=== PATIENT | male | born 1990 | race African-American/Black ===

== ENCOUNTER 2016-05-09 16:45 | Emergency (ER) | payer OTHER ==
[~2016-05-09] VITALS: Ht 175.3 cm; Wt 127.0 kg
[2016-05-09] MEDS ORDERED: METHOCARBAMOL500 M1 PO (19:36)
--- NOTE | 2016-05-09 20:03 | ED SKIN/ALLERGY COMPLAINT ---
History of Present Illness General Chief Complaint: General Adult Stated Complaint: ?ABCESS TO LT SIDE,?FROM SYNTHETIC WEED Source: patient, old records Exam Limitations: no limitations Vital Signs & Intake/Output Vital Signs & Intake/Output Vital Signs Date Time Temp Pulse Resp B/P Pulse O2 O2 Flow FiO2 Ox Delivery Rate 05/09 2023 98.5 87 18 124/65 98 05/09 1734 98.1 96 16 125/82 99 Room Air Allergies Coded Allergies: No Known Allergies (05/09/16) Reconcile Medications Amoxicillin/Potassium Clav (Augmentin 875-125 Tablet) 875 MG-125 MG TABLET 1 TAB PO BID infection Methocarbamol 500 MG TABLET 1 TAB PO Q8H MUSCLE SPASMS (Reported) Prednisone 10 MG TABLET 0 PO ONCE - 6 tabs po day 1 5 tabs po day 2 4 tabs day 3 3 tabs day 4 2 tabs po day 5 1 tab po day 6 and 7 Triage Note: PT HAS BUMP IN LEFT AXILLARY AREA. AREA HAS NO REDNESS OR TENDERNESS STATES HE HAS BEEN ON PREDNISONE FOR 4 DAYS AND IT SEEMED TO GO AWAY BUT HE WAS ONLY PUT ON THE PREDNISONE FOR 4 DAYS NOT TAPER. Triage Nurses Notes Reviewed? yes Onset: Abrupt Duration: constant, waxing and waning, x 2.5 years Timing: recent history Severity: mild, moderate Severity Numbers: 5 Possible Factors: no cause identified No Modifying Factors: none Associated Symptoms: denies HPI: 25-year-old male with no medical history presents emergency room complaining of a small bump noted to his left axilla since December 2014 after he smoked synthetic marijuana. The patient states she's been seen numerous times in emergency rooms around [place] with no known cause identified. He states he was started on prednisone for 4 days and states that was improving bump however ran out and is requesting a refill. He denies any rashes to his skin no discharge. He states that it has not been enlarging and that it stays the same size however comes and goes intermittently. Patient is also complaining of sore throat for the past 1 week he denies fever chills congestion earache. No chest pain or shortness of breath no weight loss nausea vomiting or diarrhea (JELLY WALKER,MISAEL) Past History Travel History Traveled to [place] past 21 day No Medical History Any Pertinent Medical History? none Surgical History Surgical History: none Psychosocial History What is your primary language Romanian Tobacco Use: Never used ETOH Use: occasional use Illicit Drug Use: marijuana Family History Hx Contributory? No (MISAEL ACEVEDO) Review of Systems Review of Systems Constitutional: Reports: see HPI. All Other Systems: Reviewed and Negative Comments Review of systems: See HPI, All other systems negative. Constitutional, no chills no fever, no malaise HEENT: No visual changes no sore throat no congestion, Cardiovascular: No chest pain , no palpitation Skin, see hpi Respiratory: No dyspnea no cough no sputum GI: No nausea no vomiting, no diarrhea, : No dysuria Muscle skeletal: No joint pain, no joint swelling, no back pain, no neck pain, Neurologic: Nno headache Psych: No stress Heme/endocrine: No bruising no bleeding Immunology: No lymphadenopathy, (MISAEL ACEVEDO) Physical Exam Physical Exam General Appearance: well developed/nourished, no apparent distress, alert, awake , comfortable Comments: Well-developed well-nourished patient in no apparent distress. HEENT: Atraumatic, extraocular motion intact Neck: Supple, FROM Back: FROM Cardiovascular: Regular rate and rhythms no murmurs rubs or gallops, Respiratory: No respiratory distress. Patient speaking in full complete sentences. Breath sounds clear to auscultation bilaterally: NO W/R/R Extremities: full range of motion Neuro: Alert and oriented x3 Skin: Warm & dry; there is a small reactive lymph node nontender, noted to the left axilla, there is no abscess there is no overlying erythema or induration or fluctuance No appreciable rash on exposed skin Psych: Mood affect normal, normal memory normal judgment. (MISAEL ACEVEOD) Progress Differential Diagnosis: abscess/cellulitis, allergic reaction, contact dermatitis, lymphadenoatphy,. malignancy, pharyngitis, viral syndrome Plan of Care: Current Medications Sig/Gene Start time Last Medication Dose Stop Time Status Admin Dexamethasone 4 MG ONCE ONE 05/09 2029 CAN (Decadron Inj) 05/09 2030 Dexamethasone 4 MG ONCE ONE 05/09 2014 CAN (Decadron Inj) 05/09 2015 Departure Departure Time of Disposition: 2011 Disposition: HOME OR SELF CARE Condition: Stable Clinical Impression Primary Impression: Lymphadenopathy Referrals: PATIENT HAS NO PRIMARY CARE DR (PCP/Family) Additional Instructions: Follow-up with your primary care physician on Friday. Prednisone and Augmentin as directed these prescriptions were sent to your pharmacy Departure Forms: Customer Survey General Discharge Information Prescriptions: Current Visit Scripts Prednisone 0 PO ONCE #22 TAB 6 tabs po day 1 5 tabs po day 2 4 tabs day 3 3 tabs day 4 2 tabs po day 5 1 tab po day 6 and 7 Amoxicillin/Potassium Clav (Augmentin 875-125 Tablet) 1 TAB PO BID #14 TAB (MISAEL ACEVEDO) PA/HALF SECTION IRONER Co-Sign Statement Statement: ED Attending supervision documentation- [] I saw and evaluated the patient. I have also reviewed all the pertinent lab results and diagnostic results. I agree with the findings and the plan of care as documented in the PA's/HALF SECTION IRONER's documentation. x I have reviewed the ED Record and agree with the PA's/HALF SECTION IRONER's documentation. [] Additions or exceptions (if any) to the PAs/HALF SECTION IRONER's note and plan are summarized below: [] (GABBY CROCKETT,ALDO)
[2016-05-09] MEDS ORDERED: PREDNISONE10 M2 PO (20:14)
[2016-05-09] MEDS ORDERED: AUGMENTIN 875-1 EACH PO (20:14)
[2016-05-09 20:24] VITALS: BP 124/65
== END 2016-05-09 20:45 ==
LOC: ERH 16:45
DX: R59.1 Generalized enlarged lymph nodes (principal)
CPT/HCPCS: 96372; J3490

== ENCOUNTER 2016-06-01 12:19 | Emergency (ER) | payer OTHER ==
[~2016-06-01] VITALS: Ht 175.3 cm; Wt 131.5 kg
[~2016-06-01 12:19] MED LIST: AUGMENTIN 875-1 EACH PO; METHOCARBAMOL500 M1 PO; PREDNISONE10 M2 PO
[2016-06-01 12:21] VITALS: BP 127/76
--- NOTE | 2016-06-01 12:54 | ED THROAT/DENTAL COMPLAINT ---
History of Present Illness General Chief Complaint: Sore Throat, Dental Pain Stated Complaint: SORE THROAT Source: patient, old records Exam Limitations: no limitations Vital Signs & Intake/Output Vital Signs & Intake/Output Vital Signs Date Time Temp Pulse Resp B/P Pulse O2 O2 Flow FiO2 Ox Delivery Rate 06/01 1221 97.0 104 20 127/76 98 Room Air ED Intake and Output 06/02 0000 02 1200 Intake Total Output Total Balance Patient 290 lb Weight Allergies Coded Allergies: No Known Allergies (05/09/16) Reconcile Medications Dexamethasone 4 MG TABLET 1 TAB PO DAILY throat inflammation Triage Note: PT TO ED C/O SORE THROAT X A COUPLE DAYS. HAAVING A HARD TIME SWALLOWING. Triage Nurses Notes Reviewed? yes HPI: Patient is a 25-year-old male presents complaining of feeling of throat swelling and left-sided chest discomfort. Patient has had these symptoms for greater than 1 year. Patient has been seen a primary care provider, has been on naproxen and prednisone with no improvement of his throat discomfort but reports that it helped his left shoulder and chest pain.. Patient reports he has had x- rays of his chest and his neck and reports that no one is able to tell him what is wrong. Patient feels a sensation of throat swelling that started when he was smoking synthetic marijuana. Patient reports that he no longer smokes synthetic marijuana. Patient is able to eat and drink but reports that he has a difficult time spitting up phlegm. When patient smoking marijuana he reports that it irritates his throat anymore. Patient denies fevers, chills (ROBSON CASTILLO) Past History Travel History Traveled to [place] past 21 day No Medical History Any Pertinent Medical History? see below for history Psychiatric: cannabis use Surgical History Surgical History: none Psychosocial History What is your primary language Faroese Tobacco Use: Never used ETOH Use: occasional use Illicit Drug Use: marijuana, synthetic marijuana Family History Hx Contributory? No (ROBSON CASTILLO) Review of Systems Review of Systems Constitutional: Denies: chills, fever. EENTM: Reports: throat pain, throat swelling. Respiratory: Denies: cough, short of breath. Cardiovascular: Reports: chest pain. GI: Denies: abdominal pain, nausea, vomiting. Genitourinary: Reports: no symptoms. Musculoskeletal: Reports: no symptoms. Neurological/Psychological: Reports: no symptoms. Hematologic/Endocrine: Reports: no symptoms. Immunologic/Allergic: Reports: no symptoms. (ROBSON CASTILLO) Physical Exam Physical Exam General Appearance: well developed/nourished, alert, awake, obese Head: atraumatic, normal appearance Eyes: Bilateral: normal appearance, PERRL, EOMI. Nose: normal inspection Mouth/Throat: normal mouth inspection, pharynx normal, no erythema or exudates Neck: normal inspection, supple, full range of motion, no lymphadenopathy Cardiovascular/Respiratory: normal breath sounds, regular rate/rhythm, no respiratory distress Back: normal inspection, normal range of motion Neurologic/Psych: no motor/sensory deficits, awake, alert, oriented x 3, normal gait, normal mood/affect Skin: intact, normal color, warm/dry Core Measures ACS in differential dx? No Severe Sepsis Present: No Septic Shock Present: No (ROBSON CASTILLO) Progress Differential Diagnosis: epiglottitis, Ludwigs angina, meningitis, odontogenic abscess, mago-tonsillar abscess, pharyngeal for. body, pneumomediastinum, pneumonia, muscle strain Plan of Care: Orders Procedure Date/time Status THROAT CULTURE W/QUICK STREP 06/01 1224 Active Symptoms times one year. Patient reportedly has had previous imaging and workup by his primary care doctor with no significant change in symptoms. No signs of abscess on exam, no respiratory distress. Further labs and imaging deferred. (ROBSON CASTILLO) Departure Departure Time of Disposition: 1304 Disposition: HOME OR SELF CARE Condition: Stable Clinical Impression Primary Impression: Throat discomfort Referrals: [facility],KATERYNA QUEZADA MD,HAILEE GREGORY MD,DHAVAL CARROLL MD,[facility], [facility] PATIENT HAS NO PRIMARY CARE DR (PCP/Family) Additional Instructions: Drink plenty of fluids. Follow up with Dr. Carroll(primary care provider), Dr. Gregory(primary care provider) or Kateryna Wright(primary care provider) to establish primary care, for further evaluation, and for possible referral to an ear nose and throat doctor. You may also contact Dr. Quezada(ear, nose and throat doctor) for appointment for further evaluation. Departure Forms: Customer Survey General Discharge Information Prescriptions: Current Visit Scripts Dexamethasone 1 TAB PO DAILY #5 TAB (ROBSON CASTILLO) PA/APPLICATION PROCESSOR Co-Sign Statement Statement: ED Attending supervision documentation- [] I saw and evaluated the patient. I have also reviewed all the pertinent lab results and diagnostic results. I agree with the findings and the plan of care as documented in the PA's/APPLICATION PROCESSOR's documentation. [X] I have reviewed the ED Record and agree with the PA's/APPLICATION PROCESSOR's documentation. [] Additions or exceptions (if any) to the PAs/APPLICATION PROCESSOR's note and plan are summarized below: [] (RYAN CROCKETT,CAREN)
[2016-06-01] MEDS ORDERED: DEXAMETHASONE4 M1 PO (13:07)
== END 2016-06-01 13:20 ==
LOC: ERH 12:19
DX: R07.0 Pain in throat (principal)

== ENCOUNTER 2016-06-23 10:39 | Emergency (ER) | payer OTHER ==
[~2016-06-23] VITALS: Ht 175.3 cm; Wt 73.5 kg
[~2016-06-23 10:39] MED LIST changes: +DEXAMETHASONE4 M1 PO
[2016-06-23 10:54] VITALS: BP 137/83
--- NOTE | 2016-06-23 11:21 | ED THROAT/DENTAL COMPLAINT ---
History of Present Illness General Chief Complaint: Sore Throat, Dental Pain Stated Complaint: THROAT PAIN CHRONIC X 16MNTS/WORSE TODAY Source: patient, old records Exam Limitations: no limitations Vital Signs & Intake/Output Vital Signs & Intake/Output Vital Signs Date Time Temp Pulse Resp B/P Pulse O2 O2 Flow FiO2 Ox Delivery Rate 06/23 1054 96.8 90 20 137/83 99 Room Air Allergies Coded Allergies: No Known Allergies (05/09/16) Reconcile Medications Dexamethasone 4 MG TABLET 1 TAB PO DAILY throat inflammation Omeprazole 20 MG CAPSULE. 1 CAP PO DAILY REFLUX Triage Note: C/O SORE THROAT AND DIFFICULTY SWALLOWING X 16 MONTHS, STATES HE IS UNABLE TO GET APPOINTMENT WITH ENT DUE TO INSURANCE. Triage Nurses Notes Reviewed? yes HPI: Patient presents with chronic throat pain that he's had for the past 16 months. Patient has been seen in multiple different emergency departments as well as walk-in centers however has not seen a primary care physician. Patient did attempt to see your nose and throat however was told that he needs referral from his primary care physician. Pain seems to worsen at night while he was sleeping. Patient describes the pain as a dull ache which is constant. There are no known aggravating or mitigating factors. There is no difficulty breathing or swallowing. There are no fevers or chills. Patient has been on multiple different steroids as well as antibiotics. Past History Travel History Traveled to [place] past 21 day No Medical History Any Pertinent Medical History? see below for history Psychiatric: cannabis use Surgical History Surgical History: none Psychosocial History What is your primary language Romanian Tobacco Use: Current Daily Use Daily Tobacco Use Amount/Type: => 5 Cigarettes daily ETOH Use: occasional use Illicit Drug Use: marijuana Family History Hx Contributory? No Review of Systems Review of Systems Constitutional: Reports: no symptoms. EENTM: Reports: see HPI, throat pain. Respiratory: Reports: no symptoms. Cardiovascular: Reports: no symptoms. GI: Reports: no symptoms. Neurological/Psychological: Reports: no symptoms. Physical Exam Physical Exam General Appearance: well developed/nourished, alert, awake, anxious, mild distress Head: atraumatic, normal appearance Eyes: Bilateral: PERRL, EOMI. Mouth/Throat: normal mouth inspection, pharynx normal, NO ERYTHEMA, NO SWELLING, NO EXUDATES Neck: normal inspection, supple, full range of motion, NO STRIDOR. Cardiovascular/Respiratory: normal breath sounds, normal peripheral pulses, regular rate/rhythm, no respiratory distress Back: normal inspection, normal range of motion Neurologic/Psych: no motor/sensory deficits, awake, alert, oriented x 3, normal gait, normal mood/affect Core Measures ACS in differential dx? No Severe Sepsis Present: No Septic Shock Present: No Progress Differential Diagnosis: PHARYNGITIS, REFLUX Plan of Care: Arrange for primary care physician follow-up and start PPI. Departure Departure Disposition: HOME OR SELF CARE Condition: Stable Clinical Impression Primary Impression: Sore throat Referrals: PATIENT HAS NO PRIMARY CARE DR (PCP/Family) Additional Instructions: SOMEONE FROM [facility] WILL CALL YOU TOMORROW WITH AN APPOINTMENT DATE AND TIME TAKE OMEPRAZOLE DIRECTED Departure Forms: Customer Survey General Discharge Information Prescriptions: Current Visit Scripts Omeprazole 1 CAP PO DAILY #30 CAP
[2016-06-23] MEDS ORDERED: OMEPRAZOLE20 M2 PO (11:26)
== END 2016-06-23 11:31 ==
LOC: ERH 10:39
DX: J02.9 Acute pharyngitis, unspecified (principal); Z72.0 Tobacco use